=== PATIENT | female | born 1995 | race Caucasian/White ===

== ENCOUNTER 2020-01-01 06:42 | Inpatient (IN) ==
[2020-01-01] MEDS ORDERED: CITRIC ACID/SODIUM CITRATE 30 ML UDCUP PO ONE (07:04)
[2020-01-01] MEDS ORDERED: FAMOTIDINE 20 MG/2 ML VIAL IV ONE (07:04)
[2020-01-01] MEDS ORDERED: ceFAZolin 2,000 MG in PREMIX 1 EACH IV ONE (07:04)
[2020-01-01] MEDS ORDERED: LACTATED RINGERS 1,000 ML IV ONE ×2 (07:06→12:20)
[2020-01-01] MEDS ORDERED: OXYTOCIN 10 UNIT/ML VIAL IM ONE (07:06)
[2020-01-01] MEDS ORDERED: OXYTOCIN/LR 30 UNIT/1,000 ML BAG IV ONE (07:06)
[2020-01-01] MEDS ORDERED: LACTATED RINGERS 1,000 ML IV SCH ×2 (07:30→12:30)
[2020-01-01 07:34] LABS: Basophils # 0.1 10*3/uL (0.0-0.2); Basophils % 0.4 % (0.0-0.8); Eosinophils # 0.2 10*3/uL (0.0-0.87); Eosinophils % 1.4 % (0.00-10.9); Hematocrit 33.8 VOL% (35.7-47.0); Hemoglobin 11.4 GM/DL (12.0-16.0); Immature Granulocytes % 0.8 %; Immature Granulocytes Absolute 0.11 #; Lymphocytes # 3.6 10*3/uL (1.4-4.0); Lymphocytes % 27.2 % (21.3-54.2); Mean Corpuscular HGB Conc 33.7 GM/DL (32-36); Mean Corpuscular Volume 90.9 FL (87-102); Mean Platelet Volume 11.5 FL (9.6-12.0); Neutrophils % 62.2 % (38.7-73.9); Platelet Count 233 T/CUMM (130-400); Red Blood Count 3.72 MC/CUMM (3.8-5.5); Red Cell Distribution Width 13.7 % (9.3-17.3); White Blood Count 13.2 T/CUMM (4-12)
[2020-01-01 09:35] LABS: HIV Antigen/Antibody Result Nonreactive (Nonreactive); Hepatitis B Surface Ag Quant 0.73 Index; Hepatitis B Surface Ag Result Negative (Negative)
[2020-01-01 11:44] LABS: Cord Venous Blood HCO3 22.5 MMOL/L; Cord Venous Blood PCO2 39.7 MMHG
[2020-01-01] MEDS ORDERED: ONDANSETRON 4 MG/2 ML VIAL IV PRN (12:05)
[2020-01-01] MEDS ORDERED: OXYTOCIN/LR 20 UNIT/1,000 ML BAG IV ONE (12:05)
[2020-01-01] MEDS ORDERED: RHO(D) IMMUNE GLOBULIN 300 MCG SYRINGE IM ONE (12:05)
[2020-01-01] MEDS ORDERED: ACETAMINOPHEN 325 MG TABLET PO PRN (12:05)
[2020-01-01] MEDS ORDERED: ePHEDrine 50 MG/ML AMP ONE (12:20)
[2020-01-01] MEDS ORDERED: BUPIVACAINE MPF 0.25% 30 ML VIAL ONE (12:20)
[2020-01-01] MEDS ORDERED: DEXAMETHASONE 4 MG/1 ML VIAL ONE (12:20)
[2020-01-01] MEDS ORDERED: BUPIVACAINE SPINAL 0.75% 2 ML AMP SPINAL ONE (12:20)
[2020-01-01] MEDS ORDERED: ONDANSETRON 4 MG/2 ML VIAL ONE (12:20)
[2020-01-01] MEDS ORDERED: PHENYLEPHRINE 1 MG/10 ML SYRINGE IV ONE (12:20)
[2020-01-01] MEDS ORDERED: ceFAZolin 1,000 MG in SYRINGE 1 EACH IV SCH (12:30)
[2020-01-01 14:02] LABS: Apearance,Urine CLEAR (Clear); Bilirubin,Urine Negative (Negative); Blood, Urine Negative (Negative); Glucose,Urine (UA) Negative (Negative); Ketones,Urine Negative (Negative); Nitrite,Urine Negative (Negative); Protein,Urine Negative; RBC,Urine <1 /HPF (0-4); Squamous Epithelial Cell,Urine Occasional /HPF (0-10); Urine Color Straw (Yellow); Urine Specific Gravity 1.011 (1.001-1.035); Urine Urobilinogen < 2.0 EU/DL (0.2-1.0); WBC,Urine 1 /HPF (0-6)
[2020-01-01 18:17] LABS: Albumin 2.8 G/DL (3.4-5.0); Bilirubin,Total 0.5 MG/DL (0.2-1.0); Calcium 9.3 MG/DL (8.5-10.1); Osmolality,Calculated 266.2 MOS/KG (273-304); Total Protein 7.2 G/DL (6.4-8.3)
[2020-01-01 18:56] LABS: Basophils % 0.2 % (0.0-0.8); Hematocrit 32.4 VOL% (35.7-47.0); Hemoglobin 10.8 GM/DL (12.0-16.0); Immature Granulocytes % 0.8 %; Immature Granulocytes Absolute 0.16 #; Lymphocytes # 1.8 10*3/uL (1.4-4.0); Lymphocytes % 8.6 % (21.3-54.2); Mean Corpuscular HGB Conc 33.3 GM/DL (32-36); Mean Corpuscular Volume 91.3 FL (87-102); Mean Platelet Volume 11.1 FL (9.6-12.0); Monocytes % 3.3 % (1.7-12.7); Neutrophils % 87.1 % (38.7-73.9); Platelet Count 210 T/CUMM (130-400); Red Blood Count 3.55 MC/CUMM (3.8-5.5); Red Cell Distribution Width 13.7 % (9.3-17.3); White Blood Count 20.3 T/CUMM (4-12)
[2020-01-01 20:43] LABS: Band Neutrophils 2 % (0-10); Lymphocytes 11 % (20-55); Platelet Estimate Adequate; Segmented Neutrophils 83 % (50-85); Total Cells Counted 100
[2020-01-01] MEDS: ceFAZolin 1,000 MG in SYRINGE 1 EACH IV SCH (21:05)
[2020-01-01] MEDS: IBUPROFEN 800 MG TABLET PO PRN (21:20)
[2020-01-01] MEDS: DOCUSATE SODIUM 100 MG CAPSULE PO SCH (22:29)
[2020-01-02] MEDS: IBUPROFEN 800 MG TABLET PO PRN ×2 (04:25→20:56)
[2020-01-02] MEDS: ceFAZolin 1,000 MG in SYRINGE 1 EACH IV SCH (04:25)
[2020-01-02 05:34] LABS: Basophils # 0.1 10*3/uL (0.0-0.2); Basophils % 0.3 % (0.0-0.8); Eosinophils % 0.2 % (0.00-10.9); Hematocrit 31.6 VOL% (35.7-47.0); Hemoglobin 10.3 GM/DL (12.0-16.0); Immature Granulocytes % 0.7 %; Immature Granulocytes Absolute 0.14 #; Lymphocytes # 3.6 10*3/uL (1.4-4.0); Lymphocytes % 19.3 % (21.3-54.2); Mean Corpuscular HGB Conc 32.6 GM/DL (32-36); Mean Corpuscular Volume 93.8 FL (87-102); Mean Platelet Volume 11.8 FL (9.6-12.0); Monocytes % 8.1 % (1.7-12.7); Neutrophils % 71.4 % (38.7-73.9); Platelet Count 207 T/CUMM (130-400); Red Blood Count 3.37 MC/CUMM (3.8-5.5); Red Cell Distribution Width 13.6 % (9.3-17.3); White Blood Count 18.7 T/CUMM (4-12)
[2020-01-02] MEDS: MAGNESIUM HYDROXIDE SUSP 30 ML UDCUP PO PRN ×2 (10:05→20:57)
[2020-01-02] MEDS: DOCUSATE SODIUM 100 MG CAPSULE PO SCH ×2 (10:05→20:57)
[2020-01-02] MEDS: SIMETHICONE CHEW 80 MG TABLET PO PRN ×2 (10:05→20:57)
[2020-01-02] MEDS: METOCLOPRAMIDE 10 MG TABLET PO SCH ×3 (10:05→21:58)
[2020-01-02] MEDS: MULTIVITAMIN (PRENATAL) TABLET PO SCH (10:05)
[2020-01-03] MEDS: IBUPROFEN 800 MG TABLET PO PRN (05:57)
[2020-01-03] MEDS: MULTIVITAMIN (PRENATAL) TABLET PO SCH (10:45)
[2020-01-03] MEDS: DOCUSATE SODIUM 100 MG CAPSULE PO SCH (10:45)
[2020-01-03 11:16] VITALS: BP 98/50
[2020-01-03] MEDS ORDERED: DIPH/TET/ACEL PERT BOOSTER VACCINE 0.5 ML VIAL IM ONE (11:23)
== END 2020-01-03 12:30 | disposition home or self-care (01) | DRG 540 ==
LOC: N.LD 06:42 → N.OB 15:19
PROVIDERS: ADMIT Obstetrics & Gynecology; ATTEND Obstetrics & Gynecology
PROC: LDCSECT (ICD-10-PCS; 2020-01-01 09:15)